=== PATIENT | female | born 1950 | race Caucasian/White ===

== ENCOUNTER 2019-02-06 16:28 | Observation (INO) | payer MEDICARE, OTHER ==
[~2019-02-06] VITALS: Ht 165.1 cm; Wt 95.5 kg
[2019-02-06] MEDS ORDERED: ZOLOFT100 MG PO (16:47)
[2019-02-06] MEDS ORDERED: BAYER CHEWABLE81 MG PO (16:48)
[2019-02-06] MEDS ORDERED: LISINOPRIL-HCT1 EAC7 PO (16:48)
[2019-02-06] MEDS ORDERED: PROPRANOLOL HCL20 MG PO (16:49)
[2019-02-06] MEDS ORDERED: CITRACAL + D E1 EACH PO (16:49)
[2019-02-06] MEDS ORDERED: POTASSIUM99 M1 PO (16:49)
[2019-02-06] MEDS ORDERED: ATIVAN1 MG PO (16:50)
[2019-02-06] MEDS ORDERED: B-COMPLEX PO (16:50)
[2019-02-06] MEDS ORDERED: MAGNESIUM OXID250 MG PO (16:51)
[2019-02-06] MEDS ORDERED: SYSTANE NIGHTT3.5 GM EACH EYE (16:51)
[2019-02-06] MEDS ORDERED: ZOVIRAX400 MG PO (16:51)
[2019-02-06] MEDS ORDERED: VITAMIN D31000 UNIT PO (16:51)
[2019-02-06 17:18] LABS: BASOPHILS 0.3 % (0-2); EOSINOPHILS 2.9 % (0-7); HEMATOCRIT 42.2 % (36.0-48.0); IMMATURE GRANULOCYTES 0.2 % (0-5); LYMPHOCYTES 36.3 % (15-50); MCH 33.5 pg (26.0-34.0); MCHC 33.2 g/dL (31.0-37.0); MEAN PLATELET VOLUME 9.4 fL (7.4-10.4); MONOCYTES 6.1 % (2-11); NEUTROPHILS 54.2 % (40-80); PLATELET COUNT 260 10x3/uL (130-400); RBC 4.18 10x6/uL (4.00-5.40); RDW 13.5 % (11.5-14.5); WBC 6.5 10x3/uL (4.8-10.8)
[2019-02-06 17:26] LABS: CALC OSMOLALITY 283 mosm/kg (275-300); CALCIUM 9.3 mg/dL (8.5-10.1); CARBON DIOXIDE 29.1 mmol/L (21.0-32.0); CHLORIDE - SERUM 103 mmol/L (98-107); CREATININE - SERUM 1.3 mg/dL (0.6-1.3); GLUCOSE 96 mg/dL (74-106); POTASSIUM - SERUM 3.6 mmol/L (3.5-5.1); SODIUM 139 mmol/L (136-145); UREA NITROGEN 29 mg/dL (7-18); eGFR NON AFRICAN AMERICAN 43 mL/min (90-120)
[2019-02-06 17:34] LABS: APTT 24.4 SECONDS (22.8-39.4); INR 0.97 (0.85-1.17); PROTIME 12.4 SECONDS (11.6-15.0)
[2019-02-06 17:43] LABS: ALBUMIN 4.1 g/dL (3.4-5.0); ALKALINE PHOSPHATASE 38 U/L (46-116); ALT (SGPT) 30 U/L (10-68); BILIRUBIN - TOTAL 0.59 mg/dL (0.2-1.3); CKMB 0.7 U/L (0.0-3.6); CREATINE KINASE 106 UL (21-215); MAGNESIUM - SERUM 2.1 mg/dL (1.8-2.4); PROTEIN - SERUM 8.2 g/dL (6.4-8.2); THYROID STIMULATING HORMONE 1.74 uIU/mL (0.36-3.74)
[2019-02-06 17:45] LABS: TROPONIN-I < 0.017 ng/mL (0.000-0.060)
[2019-02-06 19:33] VITALS: BP 129/54
[2019-02-06 21:45] VITALS: BP 132/58
[2019-02-06] MEDS ORDERED: OMEPRAZOLE20 M1 PO (22:13)
[2019-02-06] MEDS ORDERED: IMODIUM2 MG PO (22:14)
[2019-02-06] MEDS ORDERED: OXYBUTYNIN CHLOR5 MG PO (22:15)
[2019-02-07 01:42] VITALS: BMI 36.0
[2019-02-07 02:05] LABS: CKMB 0.8 U/L (0.0-3.6); CREATINE KINASE 91 UL (21-215)
[2019-02-07 02:09] LABS: TROPONIN-I < 0.017 ng/mL (0.000-0.060)
[2019-02-07 04:23] VITALS: BP 116/47
[2019-02-07 06:53] LABS: BASOPHILS 0.3 % (0-2); EOSINOPHILS 2.9 % (0-7); HEMATOCRIT 38.2 % (36.0-48.0); HEMOGLOBIN 12.5 g/dL (12-16); IMMATURE GRANULOCYTES 0.2 % (0-5); LYMPHOCYTES 42.7 % (15-50); MCH 32.9 pg (26.0-34.0); MCHC 32.7 g/dL (31.0-37.0); MCV 100.5 fL (80.0-100.0); MEAN PLATELET VOLUME 9.6 fL (7.4-10.4); MONOCYTES 7.1 % (2-11); NEUTROPHILS 46.8 % (40-80); PLATELET COUNT 230 10x3/uL (130-400); RDW 13.6 % (11.5-14.5); WBC 5.9 10x3/uL (4.8-10.8)
[2019-02-07 07:10] LABS: CALC OSMOLALITY 286 mosm/kg (275-300); CALCIUM 8.7 mg/dL (8.5-10.1); CHLORIDE - SERUM 107 mmol/L (98-107); CKMB 0.7 U/L (0.0-3.6); CREATINE KINASE 88 UL (21-215); CREATININE - SERUM 1.1 mg/dL (0.6-1.3); GLUCOSE 99 mg/dL (74-106); MAGNESIUM - SERUM 2.2 mg/dL (1.8-2.4); PHOSPHOROUS 3.8 mg/dL (2.5-4.9); POTASSIUM - SERUM 3.8 mmol/L (3.5-5.1); SODIUM 141 mmol/L (136-145); TROPONIN-I < 0.017 ng/mL (0.000-0.060); UREA NITROGEN 30 mg/dL (7-18); eGFR NON AFRICAN AMERICAN 52 mL/min (90-120)
--- NOTE | 2019-02-07 07:37 | NUR ---
ALERT AND ORIENTED. DENIES ANY DIZZINESS OR FACIAL NUMBNESS. NO SIGNS OF A STROKE. TELEMERTY SHOWS SR 61. RIGHT HANDSL, PATENT. UP IN ROOM. DENIES ANY NEEDS. SR UP WITH CALL LIGHT IN REACH
[2019-02-07 08:41] VITALS: BP 111/53
[2019-02-07 12:39] VITALS: Ht 165.1 cm; Wt 95.5 kg
[2019-02-07 12:54] LABS: APPEARANCE CLEAR (CLEAR); BILIRUBIN NEGATIVE (NEGATIVE); COLOR YELLOW (YELLOW); GLUCOSE NEGATIVE (NEGATIVE); KETONE NEGATIVE (NEGATIVE); NITRITE NEGATIVE (NEGATIVE); PROTEIN NEGATIVE (NEGATIVE); SPECIFIC GRAVITY 1.015 (1.005-1.020); UROBILINOGEN NORMAL (NORMAL)
[2019-02-07 13:13] LABS: CKMB 0.9 U/L (0.0-3.6); CREATINE KINASE 104 UL (21-215); TROPONIN-I < 0.017 ng/mL (0.000-0.060)
--- NOTE | 2019-02-07 13:27 | NUR ---
I have reviewed this patient and I concur with the Shift Assessment completed by the Licensed Practical Nurse today this shift.
[2019-02-07 13:35] VITALS: BP 104/51
[2019-02-07 17:43] VITALS: BP 102/35
--- NOTE | 2019-02-07 17:59 | NUR ---
PT LYING QUIETLY. FAMILY AT BEDSIDE. NO NEEDS VOICED WILL MONITOR
--- NOTE | 2019-02-07 19:51 | NUR ---
RECEIVED BEDSIDE REPORT. PATIENT IS ALERT AND ORIENTED, RESING COMFORTABLY IN BED. RESPIRATIONS ARE EVEN AND UNLABORED. NO S/S OF DISTRESS. NO C/O PAIN. CALL LIGHT WITHIN REACH. WILL CPOC.
[2019-02-07 20:00] VITALS: BP 110/57
[2019-02-08] VITALS: BP 114/66
[2019-02-08 04:00] VITALS: BP 114/65
--- NOTE | 2019-02-08 07:30 | NUR ---
AM ROUNDS COMPLETED. INTRODUCED MYSELF TO PT PRIMARY RN FOR TODAYS SHIFT. PT IS A&O STANDING UP AT BEDROOM SINK BRUSHING HER TEETH. PT STATES SHE IS DOING WELL AND FEELLING WELL OVERALL. PT IS NPO FOR LEXISCAN TODAY AND VERBALIZED UNDERSTANDING. SHIFT ASSESSMENT COMPLETED, NEURO CHECK DONE AND NO NEURO DEFICITS NOTED. PT DENIES ANY CURRENT NEEDS AT THIS TIME. CL IN REACH, BED IN LOWEST. WILL CTM.
[2019-02-08 08:15] LABS: BASOPHILS 0.2 % (0-2); HEMATOCRIT 39.1 % (36.0-48.0); HEMOGLOBIN 12.8 g/dL (12-16); IMMATURE GRANULOCYTES 0.2 % (0-5); LYMPHOCYTES 36.5 % (15-50); MCH 33.3 pg (26.0-34.0); MCHC 32.7 g/dL (31.0-37.0); MCV 101.8 fL (80.0-100.0); MEAN PLATELET VOLUME 9.5 fL (7.4-10.4); MONOCYTES 8.2 % (2-11); NEUTROPHILS 51.9 % (40-80); PLATELET COUNT 218 10x3/uL (130-400); RBC 3.84 10x6/uL (4.00-5.40); RDW 13.7 % (11.5-14.5); WBC 5.7 10x3/uL (4.8-10.8)
[2019-02-08 08:22] LABS: ANION GAP 12.2 mmol/L (8-16); CALCIUM 8.8 mg/dL (8.5-10.1); CARBON DIOXIDE 25.6 mmol/L (21.0-32.0); POTASSIUM - SERUM 3.8 mmol/L (3.5-5.1)
--- NOTE | 2019-02-08 08:30 | NUR ---
PT LEAVING FOR LEXISCAN AT THIS TIME VIA WHEELCHAIR. NO CURRENT NEEDS.
[2019-02-08 10:16] VITALS: BP 108/60
--- NOTE | 2019-02-08 11:14 | NUR ---
ORTHOSTATIC BP 2HRS POST MORNING MEDICATIONS: LYIN/56 HR 67 SITTIN/60 HR 90 STANDIN/50 HR 102
--- NOTE | 2019-02-08 11:17 | CN ---
PATIENT NAME:HORTENSIA MEYERS MEDICAL RECORD: [id number] : 52 LOCATION:D. D.2118 ADMIT DATE: 02/06/19 ACCOUNT: [id number] CONSULTING PHYSICIAN: BERT POWERS MD REFERRING PHYSICIAN: TOMASZ PATTERSON MD DATE OF CONSULTATION: 02/07/2019 ADMITTING DIAGNOSES: 1. Chest pain compatible with angina. 2. Hypertension. 3. Obesity. 4. Gastroesophageal reflux disease. HISTORY OF PRESENT ILLNESS: Mrs. Meyers has been having 2 days of chest pain. She presents as well with facial numbness that has been intermittent. The chest discomfort is a relatively classic anginal discomfort with a dull aching pressure-like sensation across the anterior chest, worse if she exerts herself, but it is currently at rest. She is currently having the discomfort. Her EKG shows only a right bundle branch block, but no acute ST-T abnormalities. She has not had a history of ischemic heart disease, not had a history of a cardiac workup. PHYSICAL EXAMINATION: CONSTITUTIONAL/GENERAL APPEARANCE: Well nourished, well developed, appears stated age. EYES: Lids and conjunctivae noninjected. No discharge. No pallor. ENT: Lips within normal limit. No cyanosis. No pallor. NECK: Carotid arteries, bilateral normal upstroke. No bruits. No thrills. No jugular venous pressure or distention. CERVICAL LYMPH NODES: Nontender. Nonenlarged. THYROID: Not enlarged. No nodules. CARDIOVASCULAR: Precordial exam, nondisplaced. No heaves or pericardial thrills. Rate and rhythm, regular. Heart sounds, normal S1, normal S2. No S3, no gallop, no rub. Systolic murmur, not heard. Diastolic murmur, not heard. RESPIRATORY: Respiratory effort, unlabored. Normal curvature. No thoracic deformity. No chest wall tenderness. Percussion, resonant. Auscultation, clear. No wheezes, no rales, no rhonchi. ABDOMEN: Soft, nondistended, nontender. No abdominal pain, no vomiting and normal appetite. MUSCULOSKELETAL: No joint tenderness, normal gait, normal tone. SKIN: Warm and dry. OVERALL IMPRESSION: Chest pain, continued pain. It is compatible with angina. We will risk stratify with stress testing Cardiolite imaging. TRANSINT:[id number] Voice Confirmation ID: [id number] DOCUMENT ID: [id number] CONSULT REPORT [id number] HORTENSIA MEYERS JEFFREY MD at 1117 CC: [id number] DICTATION DATE: 02/07/19 1237 AGENCY DEVELOPMENT MANAGER: 02/07/19 1242 ADM IN [place] [id number] [place] [address]
--- NOTE | 2019-02-08 11:17 | EC ---
PATIENT:HORTENSIA MART DATE OF SERVICE: 02/06/19 SEX: F MEDICAL RECORD: [id number] DATE OF : 52 LOCATION:D. D.211 AGE OF PATIENT: 69 ADMISSION DATE: 02/06/19 REFERRING PHYSICIAN: INTERPRETING PHYSICIAN: BERT FRAZIER MD ECHOCARDIOGRAM REPORT ECHO CHARGES 4 ECHO COMPLETE Date: 02/07/19 CLINICAL DIAGNOSIS: CHEST PAIN,ABN EKG,PRE-SYNCOPE HX OF HTN ECHOCARDIOGRAPHIC MEASUREMENTS (adult normal given) AC root (d.<3.7cm) 3.4 cm LV Septum d (<1.2 cm> 1.1 cm Valve Excursion 1.7 cm LV Septum (systole) 1.5 cm Left Atria (s.<4.0cm> 3.2 cm LVPW d(<1.2cm) 1.5 cm RV (d.<2.3cm) 3.6 cm LVPW (sytole) 1.6 cm LV diastole(<5.6CM) 4.0 cm MV E-F(>70mm/sec) cm LV systole 3.0 cm LVOT Diameter 2.0 cm MV exc.(>10mm) 1.2 cm Est.ejection fraction (50-75%) % DOPPLER: LVIT cm/sec A 74.0 cm/sec E 56.0 cm/sec LA cm/sec RVSP 26 mmHg LVOT 101 cm/sec AOP1/2T m/s Asc. Ao 151 cm/sec RVOT 77 cm/sec RA 93 cm/sec PA cm/sec AV Gradient Peak 9.10 mmHg AV Mean 5.07 mmHg AV Area 1.9 cm MV Gradient Peak 3.11 mmHg MV Mean 1.01 mmHg MV Area cm COMMENTS: [employer] Support: Ahsan BARRON Snuff Box Finisher: Janae Frazier TAPE# PACS Pericardial Effusion N DATE OF SERVICE: 02/06/2019 FINDINGS: 1. Left ventricular chamber size is within normal limits. Left ventricular systolic function is normal. Overall ejection fraction estimated at 55% to 60%. 2. Left atrium, right atrium, and right ventricular chamber sizes are within normal limits. 3. Valvular structures have normal structure and motion. 4. Doppler interrogation reveals mild tricuspid regurgitation, no other valvular insufficiency or stenosis. Pulmonary systolic pressure is estimated at ECHOCARDIOGRAM REPORT [id number] MATR,HORTENSIA D 26 mmHg. 5. No evidence of pericardial effusion or left ventricular thrombus. 6. No cardiac source of neurologic emboli. TRANSINT:[id number] Voice Confirmation ID: [id number] DOCUMENT ID: [id number] BERT FRAZIER MD at 1117 CC: [id number] DICTATION DATE: 02/07/19 155 LIFE COACH: 02/07/19 192 ADM IN [place] [id number] [place] [id number]
--- NOTE | 2019-02-08 11:43 | NUR ---
PT LEAVING FOR NM TEST AGAIN AT THIS TIME. NO FURTHER NEEDS. REMAINS NPO. WILL CTM.
--- NOTE | 2019-02-08 13:19 | NUR ---
PT BACK FROM ALL NM TESTING AND IS RESTING QUIETLY. WILL AWAIT RECCOMENDATIONS AND FIND OUT IF SHE IS ABLE TO EAT OR DRINK. NO CURRENT NEEDS AT THIS TIME.
--- NOTE | 2019-02-08 15:25 | NUR ---
PRIMARY ROUNDED AND AGREED PT IS STABLE FOR DISCHARGE. WILL BEGIN PAPERWORK. PT IS EXCITED ABOUT THIS AND DENIES ANY CURRENT NEEDS AT THIS TIME. WILL CTM.
[2019-02-08 15:50] VITALS: BP 117/61
--- NOTE | 2019-02-08 17:17 | MORECARE ---
CASE MANAGEMENT DISCHARGE SUMMARY PATIENT: HORTENSIA MART UNIT: [id number] ADM DATE: 02/06/19 AGE: 69 : [birth year] SEX: F ROOM/BED: D.2118 AUTHOR: LORI ABEL PHYSICIAN: REFERRING PHYSICIAN: TOMASZ PATTERSON MD DATE OF SERVICE: 02/08/19 Discharge Plan Patient Name: HORTENSIA MART Facility: [facility]:[place] : 1950 Planned Disposition: Home or Self Care Anticipated Discharge Date: 02/08/19 Discharge Date: Expected LOS: 2 Initial Reviewer: [email or web address] Initial Review Date: 02/08/2019 Generated: 02/08/19 6:16 pm Coverage Notice Reviewer: [email or web address] oJlene Phelps Notice Issued Date-Time: 02/07/2019 9:36 Notice Type: Medicare Outpatient Observation Notice Notice Delivered To: Patient Relationship to Patient: Self Color Straining Bag Washer Name: Delivery Method: HAND - Hand Delivered Jaimie Days: Prior Verbal Notification: Recipient Understood Notice: Yes Recipient Signature: Yes Med Rec Note Co-signed by Attending: Coverage Notice Comment: Patient Name: HORTENSIA MART Page [id number] at 1717 All edits/amendments must be made on the electronic document DICTATION DATE: 02/08/191715 WAREHOUSE GENERAL LABORER: CEFERINO 02/08/191715 RPT#: [id number] DC DATE: STATUS: ADM IN [place] [address] [place] [address] END OF REPORT
--- NOTE | 2019-02-08 17:19 | NUR ---
DISCHARGE TEACHING PROVIDED AND PAPERS SIGNED. PT VERBALIZED UNDERSTANDING AND DENIES ANY QUESTIONS OR CONCERNS. D/C PTS TELEMETRY [facility] D/C PTS PIV WITH CATHETER TIP FULLY INTACT. PTS AT BEDSIDE ASSISTING HER COLLECT HER BELONGINGS AND GETTING DRESSED. NO FURTHER NEEDS. WILL CALL FOR ESCORT TO TRANSPORT PT HOME.
--- NOTE | 2019-02-10 15:28 | ST ---
PATIENT:HORTENSIA MART MEDICAL RECORD: [id number] SEX: F LOCATION:[facility] D211 ORDER #: ADMISSION DATE: 02/06/19 AGE OF PATIENT: 69 REFERRING PHYSICIAN: INTERPRETING PHYSICIAN: BERT POWERS MD DATE OF SERVICE: 02/08/2019 PROCEDURE: Nuclear stress test. INDICATION: Chest pain. She was exercised on standard Lexiscan protocol with 32 mCi of sestamibi injected at peak stress. Rest images were done previously with 10 mCi. FINDINGS: Gated SPECT reveals preserved ejection fraction at 83% with good wall motion and thickening and brightening throughout all segments. SPECT imaging Cardiolite was used as myocardial fusion agent. There is homogeneous uptake throughout all segments at rest and stress with no evidence of inducible ischemia or previous infarction. OVERALL IMPRESSION: 1. This is a normal nuclear stress test with no evidence of inducible ischemia or previous infarction. 2. Gated SPECT reveals a preserved ejection fraction at 83%. In this patient with ongoing symptomatology, the current scan does not suggest the presence of hemodynamically significant coronary artery disease. Evaluate noncardiac etiology of chest pain. TRANSINT:[id number] Voice Confirmation ID: [id number] DOCUMENT ID: [id number] BERT POWERS MD at 1528 CC: [id number] DICTATION DATE: 02/08/19 1326 PLASTIC MOULD MAKER: 02/08/19 2323 DIS IN 02/08/19 [facility] [address] [place] [address]
== END 2019-02-08 17:22 | disposition home or self-care (01) ==
LOC: D.ER 16:28 → D.M2 21:05 → OBSVTIME 21:05 → D.M2 21:56
PROVIDERS: Family Medicine; ADMIT Family Medicine; ATTEND Family Medicine
DX: R07.9 Chest pain, unspecified (principal); R55 Syncope and collapse; E78.5 Hyperlipidemia, unspecified; K21.9 Gastro-esophageal reflux disease without esophagitis; F32.9 Major depressive disorder, single episode, unspecified; D75.89 Other specified diseases of blood and blood-forming organs; M81.0 Age-related osteoporosis without current pathological fracture; E66.9 Obesity, unspecified

== ENCOUNTER → 2019-05-26 07:54 | Outpatient (CLI) | payer MEDICARE, OTHER ==
[2019-02-07 12:39] VITALS: BMI 36.0
[~2019-05-26 07:54] MED LIST: ATIVAN1 MG PO; B-COMPLEX PO; BAYER CHEWABLE81 MG PO; CITRACAL + D E1 EACH PO; IMODIUM2 MG PO; LISINOPRIL-HCT1 EAC7 PO; MAGNESIUM OXID250 MG PO; OMEPRAZOLE20 M1 PO; OXYBUTYNIN CHLOR5 MG PO; POTASSIUM99 M1 PO; PROPRANOLOL HCL20 MG PO; SYSTANE NIGHTT3.5 GM EACH EYE; VITAMIN D31000 UNIT PO; ZOLOFT100 MG PO; ZOVIRAX400 MG PO
== END | disposition home or self-care (01) ==
LOC: D.CT 05-19 11:00 → D.MRI 07:54 → D.CT 08:30
PROVIDERS: ATTEND Nurse Practitioner
DX: G45.9 Transient cerebral ischemic attack, unspecified (principal)

== ENCOUNTER → 2019-07-26 13:14 | Outpatient (CLI) | payer MEDICARE, OTHER ==
[2019-02-07 12:39] VITALS: BMI 36.0
== END | disposition home or self-care (01) ==
LOC: D.CT 13:14
PROVIDERS: ATTEND Psychiatry & Neurology Neurology
DX: G45.9 Transient cerebral ischemic attack, unspecified (principal)